=== PATIENT | male | born 1950 | race Caucasian/White ===

== ENCOUNTER 2019-11-08 13:53 | Emergency (ER) | payer MEDICARE ==
[~2019-11-08] VITALS: Ht 170.2 cm; Wt 79.5 kg
[2019-11-08 14:14] VITALS: Ht 170.2 cm; Wt 79.5 kg
[2019-11-08] MEDS ORDERED: LISINOPRIL10 MG PO (14:16)
[2019-11-08 14:54] LABS: BASOPHILS 0.7 % (0-2); EOSINOPHILS 0.2 % (0-7); HEMATOCRIT 42.4 % (42.0-54.0); HEMOGLOBIN 14.5 g/dL (13.5-17.5); IMMATURE GRANULOCYTES 0.1 % (0-5); LYMPHOCYTES 11.1 % (15-50); MCH 28.7 pg (26.0-34.0); MCHC 34.2 g/dL (31.0-37.0); MONOCYTES 9.5 % (2-11); NEUTROPHILS 78.4 % (40-80); PLATELET COUNT 341 10x3/uL (130-400); RBC 5.05 10x6/uL (4.20-6.10); WBC 8.2 10x3/uL (4.8-10.8)
[2019-11-08 15:08] LABS: CALC OSMOLALITY 264 mosm/kg (275-300); CALCIUM 8.1 mg/dL (8.5-10.1); CARBON DIOXIDE 26.4 mmol/L (21.0-32.0); CHLORIDE - SERUM 98 mmol/L (98-107); CREATININE - SERUM 1.1 mg/dL (0.6-1.3); GLUCOSE 134 mg/dL (74-106); SODIUM 131 mmol/L (136-145); UREA NITROGEN 13 mg/dL (7-18); eGFR NON AFRICAN AMERICAN 70 mL/min (90-120)
--- NOTE | 2019-11-08 15:24 | NUR ---
Spoke with [facility], patient tested positive for COVID-19 on October.
[2019-11-08 15:25] LABS: ALBUMIN 2.7 g/dL (3.4-5.0); ALKALINE PHOSPHATASE 106 U/L (30-120); ALT (SGPT) 153 U/L (10-68); BILIRUBIN - TOTAL 0.45 mg/dL (0.2-1.3); CKMB 0.1 U/L (0.0-3.6); CREATINE KINASE 84 UL (21-232); PRO BNP 187 pg/mL (0-125); PROTEIN - SERUM 7.8 g/dL (6.4-8.2)
[2019-11-08 15:28] LABS: TROPONIN-I < 0.017 ng/mL (0.000-0.060)
[2019-11-08 15:29] LABS: APTT 35.7 SECONDS (22.8-39.4); INR 1.13 (0.85-1.17); PROTIME 14.4 SECONDS (11.6-15.0)
[2019-11-08] MEDS ORDERED: DECADRON4 MG PO ×2 (16:43→16:45)
[2019-11-08] MEDS ORDERED: PROAIR HFA8.5 G1 INH (16:43)
[2019-11-08] MEDS ORDERED: TESSALON PERLE100 MG PO (16:43)
[2019-11-08] MEDS ORDERED: ZPAK PO (16:43)
[2019-11-08 17:47] VITALS: BP 123/79
== END 2019-11-08 17:47 | disposition home or self-care (01) ==
LOC: D.ER 13:53
PROVIDERS: Emergency Medicine
DX: U07.1 COVID-19 (principal); R79.89 Other specified abnormal findings of blood chemistry; E87.1 Hypo-osmolality and hyponatremia; R73.9 Hyperglycemia, unspecified; I10 Essential (primary) hypertension